=== PATIENT | male | born 1950 | race Caucasian/White ===

== ENCOUNTER 2022-10-30 06:21 | Inpatient (IN) ==
--- NOTE | 2022-10-30 06:32 | Emergency Department Note ---
Impression & Plan Pulmonary edema, Hypoxia, Pleural effusion, bilateral ED Provider Note NAME: SOLA GARSIA AGE: 72 SEX: M : 1950 ARRIVES VIA: Ambulance INFORMANT: Patient, EMS ED PROVIDER(S): Rigo Bain DO CHIEF COMPLAINT: Shortness of breath HPI: The patient is a 72-year-old male who presented to the emergency department by ambulance for an evaluation of shortness of breath. The patient awoke acutely this morning and was very short of breath. He states he has worsening shortness of breath with lying flat. He denies having any cough or fever. He had no hemoptysis. He denies having any lower extremity swelling or pain. The patient denies having any chest pain. He called 911. The patient arrived at the emergency department via ALS with noninvasive positive pressure ventilation in place. The patient's prehospital oxygen saturation was 86%. The patient states he has no history of CHF. ROS: See above HPI for pertinent positives & negatives. A total of 10 systems reviewed and were otherwise negative. PAST MEDICAL HISTORY: See Below PAST SURGICAL HISTORY: See Below FAMILY HISTORY: See Below SOCIAL HISTORY: See Below HOME MEDICATIONS: See Below ALLERGIES: See Below VITALS: See Below PHYSICAL EXAMINATION: GENERAL: The patient is awake and alert. He is comfortable appearing. EYES: The conjunctivae are clear. The pupils are round and reactive. EARS, NOSE, MOUTH AND THROAT: The nose is without any evidence of any deformity. NECK: The neck is nontender and supple. RESPIRATORY: Diminished breath sounds were noted throughout. There is no tachypnea. CARDIOVASCULAR: Regular rate and rhythm was noted to auscultation. Systolic murmur was suggested. GASTROINTESTINAL: The abdomen is soft. Abdomen is nontender. MUSCULOSKELETAL/EXTREMITIES: There is no evidence of gross deformity full range of motion is noted in the hips and shoulders. SKIN: Skin was warm and dry. Trace pedal edema was noted bilaterally. Pulses are symmetric in both feet. NEUROLOGIC: Patient is awake alert and oriented x3 MEDICAL DECISION MAKING: The patient is a 72-year-old male who presented to the emergency department for an evaluation of difficulty breathing. The patient arrived in the general machinist hours. He was placed on BiPAP prior to arrival. The patient was treated with Lasix in the emergency department. Chest x-ray appeared to be consistent with pulmonary edema although the final read was not committal to one disease process. The patient does have a dry cough. He was not febrile. White blood cell count was mildly elevated. I do not feel this is definitely consistent with an infectious process so further radiographic studies were obtained inc luding CT angiography. There is no signs of pulmonary embolism but there were bilateral pleural effusions. I discussed patient's laboratory and radiographic studies with him and his significant other. I also discussed this case with the on-call [facility] hospitalist. The patient may require further work-up as far as an echocardiogram to further determine disease process. I will defer any infectious work-up to the admitting team. Triage Nursing notes reviewed. Prior medical records reviewed Vital Signs: reviewed and remarkable for hypoxia. Differential diagnosis: Reactive airway disease, pneumonia, pneumothorax, COPD, CHF, infections, cardiac ischemia, pulmonary embolism, musculoskeletal, gastrointestinal, as well as other pathologies. ER treatment provided: See below Diagnostics interpreted by me: ECG: EKG was obtained in the emergency department. My interpretation is normal sinus rhythm at 87 bpm. There is no ectopy. There is no acute ST segment abnormalities noted. This was compared to a tracing from January 27, 2018. No changes were noted. Cardiac Monitoring: An order was placed for continuous cardiac monitoring. The monitor shows a rate of 82 bpm with sinus rhythm. Laboratory studies: As stated above and show below. Imaging studies: See below. Radiographic imaging was reviewed by myself Consultation(s): I discussed this case with Dr. Martínez who is on-call for the [facility] ospitalist group. Past Med/Surg History Medical History (Updated 10/30/22 @ 08:46 by Rigo Bain DO) Acute respiratory failure KENIA (acute kidney injury) Diabetes High cholesterol Hypertension Neuropathy Social History Smoking Status: Never smoker Preferred Language: Azeri marital status: Current Living Situation: Family Feels Safe at Home: Yes Allergies Allergies Allergy/AdvReac Type Severity Reaction Status Date / Time No Known Allergies Allergy Mild Unverified 08/03/06 08:15 TETNUS Allergy Unknown UKN Uncoded 03/26/09 19:25 Home Meds Home Medications Medication Instructions Recorded Confirmed Metoprolol Succ (Toprol Xl) 100 mg PO DAILY ##0 08/03/06 (Toprol-Xl ) Aspirin (Aspirin Tab-Chewable *) DAILY ##0 03/26/09 Losartan Potassium (Cozaar *) 50 mg PO DAILY ##0 03/26/09 Simvastatin (Zocor) 20 mg PO QPM ##0 03/26/09 Results & Data (ED) Vital Signs Vital Signs - 24 hr 10/30/22 06:28 10/30/22 06:28 10/30/22 06:28 Temperature 36.6 C Temperature Source Oral Oral Pulse Rate 89 Pulse Rate [Right Finger] Respiratory Rate 26 H Respiratory Effort / Characteristics Non-Labored Respiratory Depth Normal Blood Pressure 174/74 H Blood Pressure [Left Arm] Blood Pressure Mean 107 Blood Pressure Mean [Left Arm] Pulse Oximetry 97 Oxygen Delivery Method Oxymask Oxymask Oxygen Flow Rate 4 Sepsis Recent Fever Within 48 Hours No Sepsis New/Unexplained Change in Mental Status No Sepsis Action Taken by Nursing No Action Required 10/30/22 06:28 10/30/22 06:44 10/30/22 07:42 Temperature Temperature Source Pulse Rate 90 Pulse Rate [Right Finger] 78 Respiratory Rate 24 Respiratory Effort / Characteristics Non-Labored Respiratory Depth Normal Blood Pressure Blood Pressure [Left Arm] 165/86 H Blood Pressure Mean Blood Pressure Mean [Left Arm] 112 Pulse Oximetry 97 98 Oxygen Delivery Method Room Air Room Air Oxygen Flow Rate Sepsis Recent Fever Within 48 Hours Sepsis New/Unexplained Change in Mental Status Sepsis Action Taken by Nursing 10/30/22 08:31 Temperature Temperature Source Pulse Rate Pulse Rate [Right Finger] 82 Respiratory Rate 22 Respiratory Effort / Characteristics Non-Labored Respiratory Depth Normal Blood Pressure Blood Pressure [Left Arm] 140/73 Blood Pressure Mean Blood Pressure Mean [Left Arm] 95 Pulse Oximetry 95 Oxygen Delivery Method Room Air Oxygen Flow Rate Sepsis Recent Fever Within 48 Hours Sepsis New/Unexplained Change in Mental Status Sepsis Action Taken by Usp Medications Current Medication List: was personally reviewed by me Laboratory Data Attestation: I reviewed the patient's lab results. 10/30/22 06:37 10/30/22 06:37 Lab Results 10/30/22 10/30/22 10/30/22 Range/Units 06:37 06:37 06:37 WBC 11.68 H (4.8-10.8) K/ul RBC 5.01 (4.70-6.10) M/uL Hgb 14.9 (14.0-18.0) g/dl Hct 43.5 (42.0-52.0) % MCV 86.8 (80.0-100.0) fL MCH 29.7 (25.0-34.0) pg MCHC 34.3 (32.0-36.0) g/dL RDW Std Deviation 43.5 (36.4-46.3) fL RDW Coeff of Scarlett 13.8 (11.5-14.5) % Plt Count 237 (130-400) K/uL MPV 10.6 (9.4-12.4) fL Immature Gran % (Auto) 0.3 % Neut % (Auto) 79.4 % Lymph % (Auto) 13.4 % [place] % (Auto) 5.1 % Eos % (Auto) 1.2 % Baso % (Auto) 0.6 % Neut # (Auto) 9.28 H (1.40-6.50) K/uL Lymph # (Auto) 1.56 (1.2-3.4) K/uL [place] # (Auto) 0.59 (0.11-0.59) K/uL Eos # (Auto) 0.14 (0-0.50) K/uL Baso # (Auto) 0.07 (0-0.2) K/uL Immature Gran # (Auto) 0.04 (0.01-0.20) K/uL PT 10.8 (9.0-12.0) Seconds INR 1.0 (0.9-1.1) APTT 28.9 (21.0-31.0) Seconds PTT Ratio 1.0 VBG pH (7.36-7.41) VBG pCO2 (38-50) mmHg VBG pO2 mmHg VBG HCO3 mmol/L VBG O2 Saturation % VBG Base Excess mEq/L Sodium 142 (136-145) mmol/L Potassium 4.4 (3.5-5.1) mmol/L Chloride 107 (98-107) mmol/L Carbon Dioxide 24 (21-32) mmol/L Anion Gap 11 (3-11) BUN 27 H (6-23) mg/dl Creatinine 1.73 H (0.6-1.4) mg/dl Est Cr Clr Drug Dosing 43.2 ml/min Est GFR ( Amer) 44.1 ml/min Est GFR (Non-Af Amer) 38.0 ml/min BUN/Creatinine Ratio 15.6 (10-20) Glucose 203 H (70-99(Fasting)) mg/dl Calcium 9.5 (8.6-10.3) mg/dl Magnesium 1.7 (1.7-2.4) mg/dl Total Bilirubin 0.4 (0.2-1.0) mg/dl AST 14 (13-39) U/L ALT 12 (7-52) U/L Alkaline Phosphatase 75 (34-104) U/L Troponin I High Sens 7.4 (0-20) pg/ml B-Natriuretic Peptide (0-100) pg/ml Total Protein 7.8 (6.0-8.3) gm/dl Albumin 4.6 (3.4-5.0) gm/dl Globulin 3.2 (2.5-4.0) gm/dl Albumin/Globulin Ratio 1.4 (0.9-2) Adenovirus (PCR) (NotDetected) B. pertussis DNA (PCR) (NotDetected) B.parapertussis DNA PCR (NotDetected) C. pneumoniae DNA (PCR) (NotDetected) Coronavirus OC43 (PCR) (NotDetected) Coronavirus HKU1 (PCR) (NotDetected) Coronavirus 229E (PCR) (NotDetected) SARS-CoV-2 (PCR) (NotDetected) Coronavirus NL63 (PCR) (NotDetected) Human Metapneumovir PCR (NotDetected) Influenza Type A (PCR) (NotDetected) Influenza Type B (PCR) (NotDetected) M. pneumoniae (PCR) (NotDetected) Parainfluenza 1 (PCR) (NotDetected) Parainfluenza 2 (PCR) (NotDetected) Parainfluenza 3 (PCR) (NotDetected) Parainfluenza 4 (PCR) (NotDetected) RSV (PCR) (NotDetected) Entero/Rhino (PCR) (NotDetected) 10/30/22 10/30/22 10/30/22 Range/Units 06:37 06:40 06:40 WBC (4.8-10.8) K/ul RBC (4.70-6.10) M/uL Hgb (14.0-18.0) g/dl Hct (42.0-52.0) % MCV (80.0-100.0) fL MCH (25.0-34.0) pg MCHC (32.0-36.0) g/dL RDW Std Deviation (36.4-46.3) fL RDW Coeff of Scarlett (11.5-14.5) % Plt Count (130-400) K/uL MPV (9.4-12.4) fL Immature Gran % (Auto) % Neut % (Auto) % Lymph % (Auto) % [place] % (Auto) % Eos % (Auto) % Baso % (Auto) % Neut # (Auto) (1.40-6.50) K/uL Lymph # (Auto) (1.2-3.4) K/uL [place] # (Auto) (0.11-0.59) K/uL Eos # (Auto) (0-0.50) K/uL Baso # (Auto) (0-0.2) K/uL Immature Gran # (Auto) (0.01-0.20) K/uL PT (9.0-12.0) Seconds INR (0.9-1.1) APTT (21.0-31.0) Seconds PTT Ratio VBG pH 7.36 (7.36-7.41) VBG pCO2 47 (38-50) mmHg VBG pO2 38 mmHg VBG HCO3 27 mmol/L VBG O2 Saturation 67.6 % VBG Base Excess 0.6 mEq/L Sodium (136-145) mmol/L Potassium (3.5-5.1) mmol/L Chloride (98-107) mmol/L Carbon Dioxide (21-32) mmol/L Anion Gap (3-11) BUN (6-23) mg/dl Creatinine (0.6-1.4) mg/dl Est Cr Clr Drug Dosing ml/min Est GFR ( Amer) ml/min Est GFR (Non-Af Amer) ml/min BUN/Creatinine Ratio (10-20) Glucose (70-99(Fasting)) mg/dl Calcium (8.6-10.3) mg/dl Magnesium (1.7-2.4) mg/dl Total Bilirubin (0.2-1.0) mg/dl AST (13-39) U/L ALT (7-52) U/L Alkaline Phosphatase (34-104) U/L Troponin I High Sens (0-20) pg/ml B-Natriuretic Peptide 205 H (0-100) pg/ml Total Protein (6.0-8.3) gm/dl Albumin (3.4-5.0) gm/dl Globulin (2.5-4.0) gm/dl Albumin/Globulin Ratio (0.9-2) Adenovirus (PCR) Not Detected (NotDetected) B. pertussis DNA (PCR) Not Detected (NotDetected) B.parapertussis DNA PCR Not Detected (NotDetected) C. pneumoniae DNA (PCR) Not Detected (NotDetected) Coronavirus OC43 (PCR) Not Detected (NotDetected) Coronavirus HKU1 (PCR) Not Detected (NotDetected) Coronavirus 229E (PCR) Not Detected (NotDetected) SARS-CoV-2 (PCR) Not Detected (NotDetected) Coronavirus NL63 (PCR) Not Detected (NotDetected) Human Metapneumovir PCR Not Detected (NotDetected) Influenza Type A (PCR) Not Detected (NotDetected) Influenza Type B (PCR) Not Detected (NotDetected) M. pneumoniae (PCR) Not Detected (NotDetected) Parainfluenza 1 (PCR) Not Detected (NotDetected) Parainfluenza 2 (PCR) Not Detected (NotDetected) Parainfluenza 3 (PCR) Not Detected (NotDetected) Parainfluenza 4 (PCR) Not Detected (NotDetected) RSV (PCR) Not Detected (NotDetected) Entero/Rhino (PCR) Not Detected (NotDetected) Administered Medications Discontinued Medications Furosemide (Furosemide 40 Mg/4 Ml Vial) 40 mg IV ONE ONE Stop: 10/30/22 07:36 Last Admin: 10/30/22 07:49 Dose: 40 mg Documented By: NRB Ioversol (Ioversol 350 Mg 125ml Prefilled Syringe) 120 ml IV ONCE ONE Stop: 10/30/22 08:04 Last Admin: 10/30/22 07:57 Dose: 120 ml Documented By: BRTiffani Imaging Data Attestation: I personally reviewed and interpreted this imaging study as follows: My Impression: 1 view chest x-ray was obtained in the emergency department. My interpretation is no free air, questionable pulmonary edema, final report below. Radiologist's Impression: Chest X-Ray 10/30/22 06:30 XR chest 1V portable CLINICAL HISTORY: Dyspnea TECHNIQUE: Single frontal radiograph of the chest was obtained. Comparison: Comparison is made to chest radiograph 01/27/2018 FINDINGS: No lines and tubes are seen. The cardiomediastinal silhouette is normal. Faint bibasilar airspace opacities are seen. No evidence of pleural effusion or pneumothorax. IMPRESSION: Faint bibasilar airspace opacities which may represent atelectasis, pneumonia, and/or aspiration. ACT 112: Negative or not required by law. Electronically signed by: Lior Escobar M.D. 10/30/2022 7:27 AM Chest CTA 10/30/22 07:38 CT angio chest PE protocol CLINICAL HISTORY: PE TECHNIQUE: Multidetector row helical CT of the chest was performed with angiographic protocol. Coronal and sagittal reformations were obtained. Coronal and sagittal MIPS were obtained from the axial data set and were submitted for review. Automated dose lowering techniques and/or adjustment according to patient size were utilized for this exam. CT DOSE: 1811.16 mGy.cm Comparison: None available at the time of this dictation. FINDINGS: Lungs and pleura: Bilateral pleural effusions are seen. Atelectasis and groundglass opacities are seen. Bronchial wall thickening is seen. Heart and pericardium: Heart size is normal. No pericardial effusion. Vessels: No evidence of pulmonary embolism. Moderate atherosclerotic disease is seen. Mediastinum and hudson: Enlarged lymph nodes measure up to 14 mm in the subcarinal region. Chest wall and lower neck: Unremarkable. Abdomen: Unremarkable. Bones: Degenerative changes in the thoracic spine. IMPRESSION: 1. Bronchial wall thickening is seen. Mild bilateral pleural effusions are seen. There are scattered groundglass opacities which may represent pneumonia. Likely reactive lymphadenopathy is seen. 2. No evidence of pulmonary embolus. ACT 112: Negative or not required by law. Electronically signed by: Lior Escobar M.D. 10/30/2022 8:25 AM Discharge Plan Visit Data Chief Complaint: Respiratory Problems ED Provider: Rigo Bain Discharge Problem: Pulmonary edema, Hypoxia, Pleural effusion, bilateral Patient Disposition: Being Evaluated by Hospitalist Forms Stand Alone Forms: My [facility] Prescriptions Prescriptions: No Action Metoprolol Succ (Toprol Xl) (Toprol-Xl ) 100 MG [id number] 100 mg PO DAILY Qty: 0 Aspirin (Aspirin Tab-Chewable *) 81 MG CHEWABLE TAB DAILY Qty: 0 Losartan Potassium (Cozaar *) 50 MG tablet 50 mg PO DAILY Qty: 0 Simvastatin (Zocor) 20 MG tablet 20 mg PO QPM Qty: 0 Referrals Referrals: Ana Nayak DO [Primary Care Provider] -
[2022-10-30 06:51] LABS: Base Excess VBG 0.6 mEq/L; HCO3 VBG 27 mmol/L; Oxygen Saturation VBG 67.6 %; PCO2 VBG 47 mmHg (38-50); PO2 VBG 38 mmHg; pH VBG 7.36 (7.36-7.41)
[2022-10-30 06:56] LABS: Basophils # (auto) 0.07 K/uL (0-0.2); Basophils % (auto) 0.6 %; Eosinophils # (auto) 0.14 K/uL (0-0.50); Eosinophils % (auto) 1.2 %; Hematocrit (blood only) 43.5 % (42.0-52.0); Hemoglobin 14.9 g/dl (14.0-18.0); Immature Granulocytes # (auto) 0.04 K/uL (0.01-0.20); Immature Granulocytes % (auto) 0.3 %; Lymphocytes # (auto) 1.56 K/uL (1.2-3.4); Lymphocytes % (auto) 13.4 %; Mean Corpuscular Hemoglobin 29.7 pg (25.0-34.0); Mean Corpuscular Hgb Conc 34.3 g/dL (32.0-36.0); Mean Corpuscular Volume 86.8 fL (80.0-100.0); Mean Platelet Volume 10.6 fL (9.4-12.4); Monocytes # (auto) 0.59 K/uL (0.11-0.59); Monocytes % (auto) 5.1 %; Neutrophils # (auto) 9.28 K/uL (1.40-6.50); Neutrophils % (auto) 79.4 %; Platelet Count 237 K/uL (130-400); RDW Coefficient of Variation 13.8 % (11.5-14.5); RDW Standard Deviation 43.5 fL (36.4-46.3); Red Blood Count 5.01 M/uL (4.70-6.10); White Blood Count 11.68 K/ul (4.8-10.8)
[2022-10-30 07:16] LABS: Albumin Globulin Ratio 1.4 (0.9-2); Albumin Level 4.6 gm/dl (3.4-5.0); BUN Creatinine Ratio 15.6 (10-20); Bilirubin,Total 0.4 mg/dl (0.2-1.0); Calcium 9.5 mg/dl (8.6-10.3); Creatinine Clr Calc Pharmacy 43.2 ml/min; Est GFR (African American) 44.1 ml/min; Globulin 3.2 gm/dl (2.5-4.0); Magnesium 1.7 mg/dl (1.7-2.4); Potassium 4.4 mmol/L (3.5-5.1); Total Protein 7.8 gm/dl (6.0-8.3)
[2022-10-30 07:21] LABS: Troponin I High Sensitivity 7.4 pg/ml (0-20)
--- NOTE | 2022-10-30 07:28 | XRay Report ---
XR chest 1V portable CLINICAL HISTORY: Dyspnea TECHNIQUE: Single frontal radiograph of the chest was obtained. Comparison: Comparison is made to chest radiograph 01/27/2018 FINDINGS: No lines and tubes are seen. The cardiomediastinal silhouette is normal. Faint bibasilar airspace opa cities are seen. No evidence of pleural effusion or pneumothorax. IMPRESSION: Faint bibasilar airspace opacities which may represent atelectasis, pneumonia, and/or aspiration. ACT 112: Negative or not required by law. Electronically signed by: Lior Escobar M.D. 10/30/2022 7:27 AM
[2022-10-30] MEDS ORDERED: FUROSEMIDE 40 MG/4 ML VIAL IV ONE ×2 (07:35→16:47)
[2022-10-30 07:43] LABS: Adenovirus PCR Not Detected (NotDetected); Bordetella parapertussis PCR Not Detected (NotDetected); Bordetella pertussis PCR Not Detected (NotDetected); Chlamydia pneumoniae PCR Not Detected (NotDetected); Coronavirus 229E PCR Not Detected (NotDetected); Coronavirus CoV-2 (COVID19)PCR Not Detected (NotDetected); Coronavirus HKU1 PCR Not Detected (NotDetected); Coronavirus NL63 PCR Not Detected (NotDetected); Coronavirus OC43PCR Not Detected (NotDetected); Human Metapneumovirus PCR Not Detected (NotDetected); Influenza A PCR Not Detected (NotDetected); Influenza B PCR Not Detected (NotDetected); Mycoplasma pneumoniae PCR Not Detected (NotDetected); Parainfluenza Virus 1 PCR Not Detected (NotDetected); Parainfluenza Virus 2 PCR Not Detected (NotDetected); Parainfluenza Virus 3 PCR Not Detected (NotDetected); Parainfluenza Virus 4 PCR Not Detected (NotDetected); Respiratory Syncytial VirusPCR Not Detected (NotDetected); Rhinovirus/Enterovirus PCR Not Detected (NotDetected)
[2022-10-30 07:45] LABS: Partial Thromboplastin Time 28.9 Seconds (21.0-31.0); Prothrombin Time 10.8 Seconds (9.0-12.0)
[2022-10-30] MEDS ORDERED: IOVERSOL 350 MG 125mL Prefilled Syringe IV ONE (08:03)
--- NOTE | 2022-10-30 08:27 | CT Scan Report ---
CT angio chest PE protocol CLINICAL HISTORY: PE TECHNIQUE: Multidetector row helical CT of the chest was performed with angiographic protocol. [place] l and sagittal reformations were obtained. Coronal and sagittal MIPS were obtained from the axial isabella a set and were submitted for review. Automated dose lowering techniques and/or adjustment according to patient size were utilized for this exam. CT DOSE: 1811.16 mGy.cm Comparison: None available at the time of this dictation. FINDINGS: Lungs and pleura: Bilateral pleural effusions are seen. Atelectasis and groundglass opacities are see n. Bronchial wall thickening is seen. Heart and pericardium: Heart size is normal. No pericardial effusion. Vessels: No evidence of pulmonary embolism. Moderate atherosclerotic disease is seen. Mediastinum and hudson: Enlarged lymph nodes measure up to 14 mm in the subcarinal region. Chest wall and lower neck: Unremarkable. Abdomen: Unremarkable. Bones: Degenerative changes in the thoracic spine. IMPRESSION: 1. Bronchial wall thickening is seen. Mild bilateral pleural effusions are seen. There are scattered groundglass opacities which may represent pneumonia. Likely reactive lymphadenopathy is seen. 2. No evidence of pulmonary embolus. ACT 112: Negative or not required by law. Electronically signed by: Lior Escobar M.D. 10/30/2022 8:25 AM
[2022-10-30] MEDS ORDERED: POLYETHYLENE (MIRALAX) 17 GM PACK PO PRN (08:35)
[2022-10-30] MEDS ORDERED: ALUMINUM/MAGNESIUM SUSP 30 ML UDC PO PRN (08:35)
[2022-10-30] MEDS ORDERED: ONDANSETRON INJ 2 MG/ML 2 ML VIAL IV PRN (08:35)
[2022-10-30] MEDS ORDERED: ACETAMINOPHEN 325 MG TAB PO PRN (08:35)
--- NOTE | 2022-10-30 08:46 | History & Physical Report ---
Date of Service October 30, 2022 Assessment & Plan (1) Acute respiratory failure: (2) KENIA (acute kidney injury): (3) Hypertension: (4) High cholesterol: (5) Diabetes: Plan 72 year old presents with acute onset SOB. SpO2 86%, placed on Bipap; since removed. Received Lasix 40 mg IV in ED. CXR and Chest CTA suggestive of PNA. No PE. Procal and Biofire negative. Recent Gabapentin added to med regimen in September. KENIA Creatinine 1.73; baseline 1.3-1.4. Avoid nephrotoxic agents. Other PMH HTN (On Amlodipine, Losartan, HCTZ and Metoprolol), NIDDM (ON Metformin and Glipizide well controlled), HLD, and Hypothyroidism. At baseline, independent and active clark. No fever, chills. Does not appear toxic. Some OSBORNE noted over past few weeks walking uphill after fishing. Treating for PNA with Doxy and new onset CHF with repeat ECHO, diuretics and Cardiology consultation PNA: Acute Respiratory Failure: SpO2 on arrival 86% --> Bipap Lasix 40 mg in ED with good response; 400mL output in ED BNP: 205; No known history of CHF Slight leukocytosis WBC 11.68 CXR: Faint bibasilar airspace opacities which may represent atelectasis, pneumonia, and/or aspiration. Chest CTA: Bronchial wall thickening is seen. Mild bilateral pleural effusions are seen. There are scattered groundglass opacities which may represent pneumonia. Likely reactive lymphadenopathy is seen. Procalcitonin negative, Mg+ and Phos+ added on Fluid restriction 1800 mL for now VBG compensated Start on Doxycycline IV; reassess CXR in a few days Bipap PRN KENIA: Creatinine 1.73; baseline 1.3-1.4 per outpatient records Check UA and renal US Urine appeared clear yellow via urinal in ED HTN: Takes Losartan, Metoprolol, HCTZ and Amlodipine; Hold Losartin and HCTZ for now due to KENIA; reassess and restart based on kidney function improvement Last ECHO: 11/2021: EF 65-69&, LV wall motion normal with mild concentric LV. AV bicuspid congenital valve, moderate AV stenosis, mild MR, Grade II DDx. Previous ECHO was 2020 prior to that and no significatn changes HLD: Takes Rosuvastatin; continue Last lipid panel 09/25/22: TG 192, HDL 36, LDL 46 NIDDM2: Takes Metformin and Glipizide; hold both while inpatient Takes Gabapentin; newly added medication on 09/25; will hold for now due to KENIA Place on ACHS SSI Last A1C: 09/25/22: 6.2 Hypothyroidism: Takes Levothyroxine; continue Last TSH 09/25/22: 2.96 Disposition: PCP: Dr. Nayak Code Status: Full Code VTE Prophylaxis: Lovenox SQ I spent a total of 87 minutes coordinating, documenting, and providing care for this patient excluding time spent in the performance of separately billed services. All of the aforementioned completed while collaborating with the assigned attending physician for a full treatment plan. Please see their addendum for further details. History of Present Illness Chief Complaint: Shortness of Breath Primary Care Provider: Ana Nayak DO Mr. Solis is a 72 year old male that presents to the [facility] ED via EMS this morning with an acute onset of shortness of breath that started this morning around 0400. He was lying flat and woke from his sleep feeling winded. No associated chest pain. He went to the living room to see if elevation would help and it did not which led to his calling 911. Pt arrived to ED on Bipap which has since been removed after Lasix administration. No other symptoms leading up BNP elevated 205. No known CHF. Mild leukocytosis WBC 11.68 and superimposed KENIA creatinine 1.73; worsening from baseline of 1.4. Last outpatient appointment was 09/25/22 and BP has been well controlled as an outpatient 130/60. Was planning to have an ECHO in the fall; no recent SOB. He is an avid clark and has noticed over the past three weeks that after he is done fishing he does have OSBORNE after climbing the hill back to his car. No usual SOB with daily ambulation to the car, bathroom, around the house, etc. He is retired. CXR: Faint bibasilar airspace opacities which may represent atelectasis, pneumonia, and/or aspiration. Chest CTA: Bronchial wall thickening is seen. Mild bilateral pleural effusions are seen. There are scattered ground-glass opacities which may represent pneumonia. Likely reactive lymphadenopathy is seen. Last ECHO: 11/2021: EF 65-69&, LV wall motion normal with mild concentric LV. AV bicuspid congenital valve, moderate AV stenosis, mild MR, Grade II DDx. Previous ECHO was 2020 prior to that and no significant changes. Follows with Dr. Biggs and Jay Clements as an outpatient. Next ECHO was planned for midNovember. No tobacco, alcohol, or recreational drug use. Pt denies HINSON, visual or auditory disturbances, dizziness, chest pain, palpitations, N/V/D, abdominal pain or tenderness, flank pain, recent falls or trauma. On examination, patient in no apparent distress on 2LNC holding saturations 96- 97%. Appreciate audible heart murmur. trace LE edema; responding well to Lasix. Decreased air movement in lower lung jackson. Suspect patient has PNA and new onset CHF and KENIA. Will treat with IV abx and IV Lasix with ECHO and cardiology consult. Will hold nephrotoxic agents and monitor urine output. Patient will be admitted for further evaluation and management. Please see A/P for further details. Allergies Allergy/AdvReac Type Severity Reaction Status Date / Time tetanus and diphtheria Allergy Unknown Unknown Verified 10/30/22 11:35 toxoids lisinopril AdvReac Cough Unverified 10/30/22 08:47 Home Medications Medication Instructions Recorded Confirmed Type amlodipine 5 mg tablet 5 mg PO BID 10/30/22 10/30/22 History aspirin 81 mg chewable tablet 81 mg PO QPM 10/30/22 10/30/22 History gabapentin 100 mg capsule 100 mg PO TID 10/30/22 10/30/22 History glipizide 2.5 mg tablet, extended 2.5 mg PO QAM 10/30/22 10/30/22 History release 24 hr hydrochlorothiazide 12.5 mg capsule 12.5 mg PO BID 10/30/22 10/30/22 History levothyroxine 50 mcg tablet 50 mcg PO QAM 10/30/22 10/30/22 History losartan 50 mg tablet 50 mg PO BID 10/30/22 10/30/22 History metformin 500 mg tablet 500 mg PO BIDWMEAL 10/30/22 10/30/22 History metoprolol succinate 100 mg 100 mg PO BID 10/30/22 10/30/22 History tablet,extended release 24 hr rosuvastatin 20 mg tablet 20 mg PO QPM 10/30/22 10/30/22 History Past Med/Surg History Medical History (Updated 10/30/22 @ 08:46 by Rigo Bain DO) Acute respiratory failure KENIA (acute kidney injury) Diabetes High cholesterol Hypertension Neuropathy Surgical History (Updated 10/30/22 @ 10:35 by SHERRY Brian) No pertinent past surgical history Family History (Updated 10/30/22 @ 10:34 by SHERRY Brian) Other Alzheimer disease Coronary heart disease Social History (Updated 10/30/22 @ 10:35 by SHERRY Brian) Smoking Status: Former smoker Smoking End Date: 50 years ago; Second Hand Exposure: No; Do You Dip or Chew Tobacco: No; Hx Alcohol Use: Yes Alcohol type: beer Hx Substance Use: No Preferred Language: Cymraes Communication Ability: Effective 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 Beliefs That Will Affect Care: None marital status: Current Living Situation: Spouse Other Information That Helps Us Care for You: No Feels Safe at Home: Yes Safety Concerns: Feels Safe At This Time Assistive Devices: Denture - Upper Review of Systems Review of Systems: Neuro: (-) Falls, trauma, slurred speech HEENT: (-) HINSON, dizziness, dysphagia, visual or auditory changes CV: (-) CP, palpitations, swelling Resp: (+) SOB GI: (-) appetite changes, N/V/D, bowel changes : (-) urinary changes Skin: (-) rashes Psych: (-) anxiety, depression Physical Exam Physical Exam: Neuro: AAOx4, PERRLA, no aphagia, memory changes, CNII-XII grossly intact HEENT: head normocephalic, moist mucus membranes CV: S1/S2, (-) M/G/R, trace BL Le edema, cap refill < 3 seconds Resp: Lungs decreased in bilateral bases; on 2LNC SpO2 96% GI: Abdomen S/NT/ND, Ax4 bowel sounds, (-) CVA tenderness Musculoskeletal: 5/5 B/L UE strength, 5/5 B/L LE strength. No gait disturbance Skin: (-) rashes , (-) erythema. Psych: euthymic mood Results & Data Results & Data Vital Signs (Past 12 Hours) Vital Signs Temp Pulse Pulse Resp BP BP Pulse Ox 10/30/22 08:31 82 22 140/73 95 10/30/22 07:42 78 24 165/86 H 98 10/30/22 06:44 97 10/30/22 06:28 90 10/30/22 06:28 10/30/22 06:28 36.6 C 89 26 H 174/74 H 97 O2 Del Method O2 Flow Rate 10/30/22 08:31 Room Air 10/30/22 07:42 Room Air 10/30/22 06:44 Room Air 10/30/22 06:28 10/30/22 06:28 Oxymask 10/30/22 06:28 Oxymask 4 Laboratory Results Short CBC 10/30/22 Range/Units 06:37 WBC 11.68 H (4.8-10.8) K/ul Hgb 14.9 (14.0-18.0) g/dl Hct 43.5 (42.0-52.0) % Plt Count 237 (130-400) K/uL BMP 10/30/22 06:37 Sodium 142 Potassium 4.4 Chloride 107 Carbon Dioxide 24 BUN 27 H Creatinine 1.73 H Glucose 203 H Calcium 9.5 Liver Function 10/30/22 Range/Units 06:37 Total Bilirubin 0.4 (0.2-1.0) mg/dl AST 14 (13-39) U/L ALT 12 (7-52) U/L Alkaline Phosphatase 75 (34-104) U/L Albumin 4.6 (3.4-5.0) gm/dl Diagnostic Findings Chest X-Ray 10/30/22 06:30 XR chest 1V portable CLINICAL HISTORY: Dyspnea TECHNIQUE: Single frontal radiograph of the chest was obtained. Comparison: Comparison is made to chest radiograph 01/27/2018 FINDINGS: No lines and tubes are seen. The cardiomediastinal silhouette is normal. Faint bibasilar airspace opacities are seen. No evidence of pleural effusion or pneumothorax. IMPRESSION: Faint bibasilar airspace opacities which may represent atelectasis, pneumonia, and/or aspiration. ACT 112: Negative or not required by law. Electronically signed by: Lior Escobar M.D. 10/30/2022 7:27 AM Chest CTA 10/30/22 07:38 CT angio chest PE protocol CLINICAL HISTORY: PE TECHNIQUE: Multidetector row helical CT of the chest was performed with angiographic protocol. Coronal and sagittal reformations were obtained. Coronal and sagittal MIPS were obtained from the axial data set and were submitted for review. Automated dose lowering techniques and/or adjustment according to patient size were utilized for this exam. CT DOSE: 1811.16 mGy.cm Comparison: None available at the time of this dictation. FINDINGS: Lungs and pleura: Bilateral pleural effusions are seen. Atelectasis and groundglass opacities are seen. Bronchial wall thickening is seen. Heart and pericardium: Heart size is normal. No pericardial effusion. Vessels: No evidence of pulmonary embolism. Moderate atherosclerotic disease is seen. Mediastinum and hudson: Enlarged lymph nodes measure up to 14 mm in the subcarinal region. Chest wall and lower neck: Unremarkable. Abdomen: Unremarkable. Bones: Degenerative changes in the thoracic spine. IMPRESSION: 1. Bronchial wall thickening is seen. Mild bilateral pleural effusions are seen. There are scattered groundglass opacities which may represent pneumonia. Likely reactive lymphadenopathy is seen. 2. No evidence of pulmonary embolus. ACT 112: Negative or not required by law. Electronically signed by: Lior Escobar M.D. 10/30/2022 8:25 AM Code Status & VTE Plan Code Status Full Code in the event of cardiac or respiratory arrest VTE Prophylaxis Plan VTE Prophylaxis will be ordered: Yes Supervising Physician Co-Signing Physician Notes 72-year-old male with PMH of HTN, NIDDM, HLD, hypothyroidism presented to the ED 10/30 with acute shortness of breath waking him up from sleep and then he started noting orthopnea after worse during CT scan of his chest at admission. He reports having lower extremity swelling lately. He denies any fever/chills/unusual cough productive of foul-smelling/discolored sputum. Of note, patient found to be in respiratory distress by EMS and needed BiPAP in route to the hospital which improved after IV Lasix administration and was able to be stable on nasal cannula oxygen. At presentation, BNP elevated. Echo with EF greater than 70% and moderate to severe aortic stenosis. Had BLE 1+ pitting edema. Occasional bibasal rales. CXR with bibasilar opacities. CTA chest negative for PE. Creatinine was elevated. On Exam: GENERAL: Alert and oriented x3. NAD, on 2.5 L NC O2. HEENT: No pallor, no icterus. Pupils equal, round and reactive to light. Oral mucosa moist. NECK: No JVD, no neck masses. HEART: S1 and S2 heard. Regular rate and rhythm. No murmur, no gallop. RESPIRATORY SYSTEM: Normal AP diameter. No accessory muscle use. No wheezing, bb crackles. ABDOMEN: Soft, bowel sounds present, nontender, no distention. CENTRAL NERVOUS SYSTEM: No facial droop. Speech is clear. Obeys simple commands. Moves extremities. EXTREMITIES: 1+ BLE edema, no erythema seen. Plan: Acute respiratory failure likely secondary to acute CHF -continue with Lasix, monitor and replete electrolytes. Cardiology consult. Possible atypical pneumonia started on doxycycline. KENIA over CKD: Ultrasound renal reviewed. Expect to improve with IV Lasix. BMP in AM. Other chronic medical conditions, resume home meds as and when able. Hold nephrotoxic medications like losartan/HCTZ/gabapentin. I have seen and examined the patient and have discussed the case with the provider above. I agree with the assessment and plan as stated.
[2022-10-30 08:57] LABS: Appearance Urine Clear (Clear); Bilirubin Urine Negative (Negative); Blood Urine Negative (Negative); Color Urine Yellow; Glucose Urine UA Negative (Negative); Ketones Urine Negative (Negative); Leukocyte Esterase Urine Negative (Negative); Nitrite Urine Negative (Negative); Protein Urine Negative (Negative); Specific Gravity Urine 1.017 (1.000-1.030); Urobilinogen Urine Negative (Negative); pH Urine 5.5 (4.5-7.5)
[2022-10-30] MEDS ORDERED: CARBOHYDRATES FOR HYPOGLYCEMIA PO PRN (09:56)
[2022-10-30] MEDS ORDERED: GLUCOSE 40% GEL 15 GM TUBE PO PRN (09:56)
[2022-10-30] MEDS ORDERED: GLUCOSE 10 TAB/TUBE PO PRN (09:56)
[2022-10-30] MEDS ORDERED: GLUCAGON FOR INJ 1 MG VIAL SQ PRN (09:56)
[2022-10-30] MEDS ORDERED: DEXTROSE 50% 50 ML SYRINGE IV PRN (09:56)
[2022-10-30] MEDS: LEVOTHYROXINE SODIUM 50 MCG TABLET PO SCH (12:23)
[2022-10-30] MEDS: INSULIN ASPART PER UNIT CHARGE SC SCH ×3 (12:23→20:36)
[2022-10-30] MEDS: DOXYCYCLINE HYCLATE 100 MG in DEXTROSE 5% 100 ML IV SCH (12:23)
[2022-10-30] MEDS: amLODIPine BESYLATE 5 MG TAB PO SCH ×2 (12:23→20:23)
[2022-10-30] MEDS: METOPROLOL SUCC 50MG EXT REL TAB PO SCH ×2 (12:23→20:22)
--- NOTE | 2022-10-30 14:34 | Ultrasound Report ---
RENAL ULTRASOUND HISTORY: Acute or chronic kidney disease. COMPARISON: None. FINDINGS: Right kidney: 10.7 cm. No hydronephrosis. Normal corticomedullary differentiation and cortical thickn ess. Left kidney: 10.9 cm. No hydronephrosis. Normal corticomedullary differentiation and cortical thickne ss. Bladder: No bladder wall thickening. The bilateral ureteral jets were not identified. IMPRESSION: Normal renal ultrasound. ACT 112: Negative or not required by law. Electronically signed by: Alberto Chaidez M.D. 10/30/2022 2:32 PM
--- NOTE | 2022-10-30 15:27 | Cardiology Consultation ---
Date of Consultation October 30, 2022 Assessment & Plan (1) Acute diastolic heart failure due to valvular disease: (2) Aortic stenosis: (3) Pulmonary edema: (4) Hypertension: (5) Pneumonia: Plan See attending tile mason's documentation for further recommendations and plan of care. Supervising Physician Co-Signing Physician Notes Attending Staff: Pt seen and evaluated with AP Staff. Concur with observations and plans. 72 yo man presenting with dyspnea Dx: Pneumonia + acute on chronic diastolic heart failure Rx with diuretics and antibiotics Exam: JVP 12 cmH20 S1S2 2/6 systolic murmur; A2 is audible CTA B No C/C/E Warm and well perfused Plans: * Continue ABX * Continue diuresing * K+ goal 4.5-5 * Mag++ goal >2 * Plans to re-look at aortic valve in the clinic with ECHO. Yan Chávez History of Present Illness Reason for Consultation: dyspnea; HFpEF; Requesting Physician: Ms. Jassi POWELL Attending Physician: Dr. Chávez History of Present Illness Patient is a 72 year old male admitted to [facility] with complaints of dyspnea. Found to be hypoxic. Chest xray and chest CT consistent with possible CHF and PNA. Treated with IV lasix in ER and started on antibiotics as well. [facility]Dr. Biggs: History includes: Congenitally bicuspid aortic valve. Moderate aortic stenosis per last echo in Nov 2021. No significant aortopathy. Long-standing hypertension. Diastolic dysfunction/HFpEF Bilateral internal carotid artery disease. Carotid duplex in May 2020 revealed stable mild bilateral internal carotid artery disease. Mild pulmonary hypertension. Possible mild NATHALIE Hyperlipidemia. Past history of paroxysmal atrial tachycardia Type II diabetes mellitus with neuropathy and stage III chronic kidney disease. Followed by PCP and Nephrology. Hypothyroidism. Patient was in usual state of health yesterday. Went shopping with his and felt well. Ate large meal of "pigs in a blanket". Middle of the night patient awoke with sudden onset SOB, difficult breathing, congestion. Came to ER for evaluation. Found to be mildly hypoxic and started on CPAP. Treated with one dose IV lasix. Chest CT negative for PE, but with possible b/l opacities and lymphadenopathy consistent with possible pneumonia. started on antibiotic therapy EKG demonstrated NSR without acute changes. At time of consult patient already reports feeling better. SOB improving. cough improving. Good urine outputs with AM furosemide. Allergies Allergy/AdvReac Type Severity Reaction Status Date / Time tetanus and diphtheria Allergy Unknown Unknown Verified 10/30/22 11:35 toxoids lisinopril AdvReac Cough Unverified 10/30/22 08:47 Home Medications Medication Instructions Recorded Confirmed Type amlodipine 5 mg tablet 5 mg PO BID 10/30/22 10/30/22 History aspirin 81 mg chewable tablet 81 mg PO QPM 10/30/22 10/30/22 History gabapentin 100 mg capsule 100 mg PO TID 10/30/22 10/30/22 History glipizide 2.5 mg tablet, extended 2.5 mg PO QAM 10/30/22 10/30/22 History release 24 hr hydrochlorothiazide 12.5 mg capsule 12.5 mg PO BID 10/30/22 10/30/22 History levothyroxine 50 mcg tablet 50 mcg PO QAM 10/30/22 10/30/22 History losartan 50 mg tablet 50 mg PO BID 10/30/22 10/30/22 History metformin 500 mg tablet 500 mg PO BIDWMEAL 10/30/22 10/30/22 History metoprolol succinate 100 mg 100 mg PO BID 10/30/22 10/30/22 History tablet,extended release 24 hr rosuvastatin 20 mg tablet 20 mg PO QPM 10/30/22 10/30/22 History Patient History Medical History (Updated 10/30/22 @ 16:21 by Haritha Thorne PA-C) Acute respiratory failure KENIA (acute kidney injury) Diabetes High cholesterol Hypertension Neuropathy Surgical History (Updated 10/30/22 @ 10:35 by HSERRY Brian) No pertinent past surgical history Family History (Updated 10/30/22 @ 10:34 by SHERRY Brian) Other Alzheimer disease Coronary heart disease Social History (Updated 10/30/22 @ 10:35 by SHERRY rBian) Smoking Status: Former smoker Smoking End Date: 50 years ago; Second Hand Exposure: No; Do You Dip or Chew Tobacco: No; Hx Alcohol Use: Yes Alcohol type: beer Hx Substance Use: No Preferred Language: Faroese Communication Ability: Effective Bag Bundler Required: No Beliefs That Will Affect Care: None marital status: Current Living Situation: Spouse Other Information That Helps Us Care for You: No Feels Safe at Home: Yes Safety Concerns: Feels Safe At This Time Assistive Devices: Denture - Upper Review of Systems Review of Systems: All systems reviewed & are unremarkable except as noted in HPI & below Physical Exam Constitutional: WD/WN, vitals as above + obese; no acute distress Respiratory: no labored breathing Auscultation: + diminished lung sounds; no crackles Cardiovascular: Rate/Rhythm: regular rate and regular rhythm Heart Sounds: + murmur (II/ systolic murmur LSB with radiation to neck) Vessels: + JVD Extremities: + edema (1+ pretibial edema ) Gastrointestinal (Abdomen): normal bowel sounds, soft, nontender, no hepatosplenomegaly Musculoskeletal: no cyanosis or clubbing, extremities motor strength 5/5 Results & Data Vital Signs (Past 12 Hours) Vital Signs Temp Pulse Pulse Pulse Resp BP BP 10/30/22 15:14 36.6 C 63 19 137/72 10/30/22 12:45 10/30/22 11:36 36.7 C 72 18 159/72 H 10/30/22 08:00 10/30/22 08:00 10/30/22 10:24 70 20 144/61 H 10/30/22 08:31 82 22 140/73 10/30/22 07:42 78 24 165/86 H 10/30/22 06:44 10/30/22 06:28 90 10/30/22 06:28 10/30/22 06:28 36.6 C 89 26 H 174/74 H Pulse Ox O2 Del Method O2 Flow Rate 10/30/22 15:14 97 Nasal Cannula 2 10/30/22 12:45 Nasal Cannula 2 10/30/22 11:36 96 Nasal Cannula 2 10/30/22 08:00 97 Nasal Cannula 4 10/30/22 08:00 Nasal Cannula 2 10/30/22 10:24 97 Room Air 10/30/22 08:31 95 Room Air 10/30/22 07:42 98 Room Air 10/30/22 06:44 97 Room Air 10/30/22 06:28 10/30/22 06:28 Oxymask 10/30/22 06:28 97 Oxymask 4 Laboratory Results Cardiac Enzymes 10/30/22 10/30/22 Range/Units 06:37 06:40 AST 14 (13-39) U/L Troponin I High Sens 7.4 (0-20) pg/ml B-Natriuretic Peptide 205 H (0-100) pg/ml Coagulation 10/30/22 10/30/22 Range/Units 06:37 06:40 PT 10.8 (9.0-12.0) Seconds APTT 28.9 (21.0-31.0) Seconds B-Natriuretic Peptide 205 H (0-100) pg/ml CBC 10/30/22 Range/Units 06:37 WBC 11.68 H (4.8-10.8) K/ul RBC 5.01 (4.70-6.10) M/uL Hgb 14.9 (14.0-18.0) g/dl Hct 43.5 (42.0-52.0) % Plt Count 237 (130-400) K/uL Neut # (Auto) 9.28 H (1.40-6.50) K/uL Lymph # (Auto) 1.56 (1.2-3.4) K/uL [place] # (Auto) 0.59 (0.11-0.59) K/uL Eos # (Auto) 0.14 (0-0.50) K/uL Baso # (Auto) 0.07 (0-0.2) K/uL Comprehensive Metabolic Panel 10/30/22 Range/Units 06:37 Sodium 142 (136-145) mmol/L Potassium 4.4 (3.5-5.1) mmol/L Chloride 107 (98-107) mmol/L Carbon Dioxide 24 (21-32) mmol/L BUN 27 H (6-23) mg/dl Creatinine 1.73 H (0.6-1.4) mg/dl Glucose 203 H (70-99(Fasting)) mg/dl Calcium 9.5 (8.6-10.3) mg/dl AST 14 (13-39) U/L ALT 12 (7-52) U/L Alkaline Phosphatase 75 (34-104) U/L Total Protein 7.8 (6.0-8.3) gm/dl Albumin 4.6 (3.4-5.0) gm/dl Intake and Output 10/30/22 10/30/22 10/30/22 06:59 14:59 22:59 Intake Total 350 / 350 Output Total 900 / 900 Balance -550 / -550 Intake: IV 110 / 110 Doxycycline Hyclate 100 mg In 110 / 110 Dextrose 5% 100 ml @ 50 mls/hr IV Q12H [facility] Rx#:[id number] Oral 240 / 240 Output: Urine 900 / 900 Other: Weight 104.7 kg 99.7 kg Weight Measurement Method Built in [facility] Built in [facility] Patient Weight 10/31/22 06:59 Weight 99.7 kg Diagnostic Findings Telemetry reviewed: NSR with rare PVC. NO arrhythmias EKG on arrival: Normal sinus rhythm Normal ECG When compared with ECG of 27-JAN-2018 13:42, No significant change was found Echo report: technically limited study LV wall motion is normal with mild concentric LVH LV is hyperdynamic. EF > 70% Mild MR. Aortic valve is not well visualized. Aortic valve is severely calcified. Moderate to severe is present. Limited visibility Chest X-Ray 10/30/22 06:30 XR chest 1V portable CLINICAL HISTORY: Dyspnea TECHNIQUE: Single frontal radiograph of the chest was obtained. Comparison: Comparison is made to chest radiograph 01/27/2018 FINDINGS: No lines and tubes are seen. The cardiomediastinal silhouette is normal. Faint bibasilar airspace opacities are seen. No evidence of pleural effusion or pneumothorax. IMPRESSION: Faint bibasilar airspace opacities which may represent atelectasis, pneumonia, and/or aspiration. ACT 112: Negative or not required by law. Electronically signed by: Lior Escobar M.D. 10/30/2022 7:27 AM Chest CTA 10/30/22 07:38 CT angio chest PE protocol CLINICAL HISTORY: PE TECHNIQUE: Multidetector row helical CT of the chest was performed with angiographic protocol. Coronal and sagittal reformations were obtained. Coronal and sagittal MIPS were obtained from the axial data set and were submitted for review. Automated dose lowering techniques and/or adjustment according to patient size were utilized for this exam. CT DOSE: 1811.16 mGy.cm Comparison: None available at the time of this dictation. FINDINGS: Lungs and pleura: Bilateral pleural effusions are seen. Atelectasis and groundglass opacities are seen. Bronchial wall thickening is seen. Heart and pericardium: Heart size is normal. No pericardial effusion. Vessels: No evidence of pulmonary embolism. Moderate atherosclerotic disease is seen. Mediastinum and hudson: Enlarged lymph nodes measure up to 14 mm in the subcarinal region. Chest wall and lower neck: Unremarkable. Abdomen: Unremarkable. Bones: Degenerative changes in the thoracic spine. IMPRESSION: 1. Bronchial wall thickening is seen. Mild bilateral pleural effusions are seen. There are scattered groundglass opacities which may represent pneumonia. Likely reactive lymphadenopathy is seen. 2. No evidence of pulmonary embolus. ACT 112: Negative or not required by law. Electronically signed by: Lior Escobar M.D. 10/30/2022 8:25 AM Renal Ultrasound 10/30/22 08:13 RENAL ULTRASOUND HISTORY: Acute or chronic kidney disease. COMPARISON: None. FINDINGS: Right kidney: 10.7 cm. No hydronephrosis. Normal corticomedullary differentiation and cortical thickness. Left kidney: 10.9 cm. No hydronephrosis. Normal corticomedullary differentiation and cortical thickness. Bladder: No bladder wall thickening. The bilateral ureteral jets were not identified. IMPRESSION: Normal renal ultrasound. ACT 112: Negative or not required by law. Electronically signed by: Alberto hCaidez M.D. 10/30/2022 2:32 PM Medications Administered Current Inpatient Medications Acetaminophen (Acetaminophen 325 Mg Tab) 650 mg PO Q4H PRN PRN Reason: Pain or Fever Stop: 11/29/22 08:34 Al Hydrox/Mg Hydrox/Simethicone (Aluminum/Magnesium Susp 30 Ml Udc) 15 ml PO Q4H PRN PRN Reason: Dyspepsia Stop: 11/29/22 08:34 Amlodipine Besylate (Amlodipine Besylate 5 Mg Tab) 5 mg PO BID HEVER Stop: 11/29/22 11:59 Last Admin: 10/30/22 12:23 Dose: 5 mg Aspirin (Aspirin 81 Mg Chew) 81 mg PO QPM HEVER Stop: 11/29/22 20:59 Dextrose (Dextrose 50% 50 Ml Syringe) 25 - 50 ml IV UD PRN; Protocol PRN Reason: Hypoglycemia Protocol Stop: 11/29/22 09:55 Enoxaparin Sodium (Enoxaparin Inj 40 Mg/0.4 Ml Syr) 40 mg SQ QAM HEVER Stop: 11/30/22 08:59 Furosemide (Furosemide Inj 20 Mg/2 Ml Vial) 20 mg IV BIDM HEVER Stop: 11/29/22 19:59 Glucagon (Glucagon For Inj 1 Mg Vial) 1 mg SQ UD PRN; Protocol PRN Reason: Hypoglycemia Protocol Stop: 11/29/22 09:55 Glucose (Glucose 10 Tab/Tube) 4 - 8 tab PO UD PRN; Protocol PRN Reason: Hypoglycemia Treatment Stop: 11/29/22 09:55 Glucose (Glucose 40% Gel 15 Gm Tube) 15 - 30 gm PO UD PRN; Protocol PRN Reason: Hypoglycemia Protocol Stop: 11/29/22 09:55 Guaifenesin (Guaifenesin 600 Mg Tabcr) 1,200 mg PO Q12 HEVER Stop: 11/29/22 20:59 Doxycycline Hyclate 100 mg/ (Dextrose) 110 mls @ 50 mls/hr IV Q12H HEVER Stop: 11/06/22 11:59 Last Infusion: 10/30/22 14:35 Dose: Infused Insulin Aspart (Insulin Aspart Per Unit Charge) 0 units SC ACHS HEVER Stop: 11/29/22 11:29 Last Admin: 10/30/22 12:23 Dose: 5 units Levothyroxine Sodium (Levothyroxine Sodium 50 Mcg Tablet) 50 mcg PO DAILYBB HEVER Stop: 11/29/22 11:59 Last Admin: 10/30/22 12:23 Dose: Not Given Metoprolol Succinate (Metoprolol Succ 50mg Ext Rel Tab) 100 mg PO BID HEVER Stop: 11/29/22 11:59 Last Admin: 10/30/22 12:23 Dose: 100 mg Miscellaneous (Carbohydrates For Hypoglycemia ) 15 - 30 gm PO UD PRN PRN Reason: Hypoglycemia Protocol Stop: 11/29/22 09:55 Ondansetron HCl (Ondansetron Inj 2 Mg/Ml 2 Ml Vial) 4 mg IV Q6H PRN PRN Reason: Nausea Stop: 11/29/22 08:34 Polyethylene Glycol (Polyethylene (Miralax) 17 Gm Pack) 17 gm PO DAILY PRN PRN Reason: Constipation Stop: 11/29/22 08:34 Rosuvastatin Calcium (Rosuvastatin Calcium 20 Mg Tab) 20 mg PO QPM HEVER Stop: 11/29/22 20:59 (3) Pulmonary edema Chronicity: acute Qualified Code(s): J81.0 - Acute pulmonary edema
--- NOTE | 2022-10-30 16:04 | Electrocardiogram Report ---
Test Reason : Blood Pressure : / mmHG Vent. Rate : 087 BPM Atrial Rate : 087 BPM P-R Int : 160 ms QRS Dur : 094 ms QT Int : 384 ms P-R-T Axes : 004 027 054 degrees QTc Int : 462 ms Normal sinus rhythm Normal ECG When compared with ECG of 27-JAN-2018 13:42, No significant change was found Confirmed by Rigo Cabello ([id number]) on 10/30/2022 4:03:23 PM Referred By: REFERRED SELF Confirmed By:Rigo Cabello
[2022-10-30] MEDS ORDERED: POTASSIUM CHLORIDE CRTAB 20 MEQ TABCR PO ONE (16:48)
[2022-10-30] MEDS ORDERED: FUROSEMIDE INJ 20 MG/2 ML VIAL IV SCH (20:00)
[2022-10-30] MEDS: guaiFENesin 600 MG TABCR PO SCH (20:23)
[2022-10-30] MEDS ORDERED: ASPIRIN 81 MG CHEW PO SCH (21:00)
[2022-10-30] MEDS ORDERED: ROSUVASTATIN CALCIUM 20 MG TAB PO SCH (21:00)
[2022-10-31] MEDS: DOXYCYCLINE HYCLATE 100 MG in DEXTROSE 5% 100 ML IV SCH ×2 (01:14→11:39)
[2022-10-31] MEDS: LEVOTHYROXINE SODIUM 50 MCG TABLET PO SCH (05:03)
[2022-10-31 07:00] LABS: Hematocrit (blood only) 38.5 % (42.0-52.0); Hemoglobin 13.2 g/dl (14.0-18.0); Mean Corpuscular Hemoglobin 29.1 pg (25.0-34.0); Mean Corpuscular Hgb Conc 34.3 g/dL (32.0-36.0); Mean Platelet Volume 10.6 fL (9.4-12.4); Platelet Count 196 K/uL (130-400); RDW Coefficient of Variation 13.4 % (11.5-14.5); RDW Standard Deviation 41.9 fL (36.4-46.3); Red Blood Count 4.53 M/uL (4.70-6.10); White Blood Count 8.23 K/ul (4.8-10.8)
[2022-10-31 07:13] LABS: Albumin Globulin Ratio 1.6 (0.9-2); Albumin Level 4.2 gm/dl (3.4-5.0); BUN Creatinine Ratio 19.6 (10-20); Bilirubin,Total 0.8 mg/dl (0.2-1.0); Calcium 9.1 mg/dl (8.6-10.3); Creatinine Clr Calc Pharmacy 44.7 ml/min; Est GFR (African American) 47.4 ml/min; Est GFR (Non-African American) 40.9 ml/min; Globulin 2.7 gm/dl (2.5-4.0); Magnesium 1.6 mg/dl (1.7-2.4); Phosphorus 3.3 mg/dl (2.5-4.9); Potassium 4.1 mmol/L (3.5-5.1); Total Protein 6.9 gm/dl (6.0-8.3)
--- NOTE | 2022-10-31 07:35 | XRay Report ---
XR chest 1V portable HISTORY: Shortness of breath. COMPARISON: Chest 10/30/2022 FINDINGS: The lungs are clear. Cardiac silhouette is normal in size. No pleural effusions. No pneumot horax. IMPRESSION: No acute process. ACT 112: Negative or not required by law. Electronically signed by: Alberto Chaidez M.D. 10/31/2022 7:33 AM
--- NOTE | 2022-10-31 07:53 | Cardiology Progress Note ---
Date of Service October 31, 2022 Assessment & Plan Admission and Anticipated Discharge Date Admission Date: October 30, 2022 Supervising Physician Co-Signing Physician Notes Attending Staff: Pt seen and evaluated with AP Staff. Concur with observations and plans. 72 yo man presenting with dyspnea Dx: Pneumonia + acute on chronic diastolic heart failure Rx with diuretics and antibiotics Plans: * Continue ABX * Pt appeasrs euvolemic and is on RA * STOP Lasix IV * Start Lasix 20 mg po per day * STOP HCTZ (outpt med) * K+ goal 4.5-5 * Mag++ goal >2 * Check BMP within a week as an outpt * Continue Toprol XL 100 mg po BID (SHIPPING ORDER CLERK) * Continue Crestor 20 mg (SHIPPING ORDER CLERK) * LDL - 46 - 2 goal * Continue ASA * Please arrange for patient to be seen @ [facility]/Edwin Ruff * Plans to re-look at aortic valve in the clinic with ECHO. Yan Chávez Subjective Events overnight: * No events overnight * No telemetry events Subjective: * Breathing significantly improved Review of Systems Review of Systems: All systems reviewed & are unremarkable except as noted in HPI & below Physical Exam Physical Exam: JVP 10 cmH20 S1S2 2/6 systolic murmur; A2 is audible CTA B No C/C/E Warm and well perfused Results & Data Vital Signs (Past 12 Hours) Vital Signs Temp Pulse Pulse Resp BP Pulse Ox O2 Del Method 10/31/22 03:00 36.6 C 66 18 173/71 H 97 Room Air 10/30/22 23:00 36.9 C 65 18 115/66 95 Room Air 10/30/22 22:48 64 Laboratory Results Cardiac Enzymes 10/31/22 Range/Units 06:28 AST 12 L (13-39) U/L CBC 10/31/22 Range/Units 06:28 WBC 8.23 (4.8-10.8) K/ul RBC 4.53 L (4.70-6.10) M/uL Hgb 13.2 L (14.0-18.0) g/dl Hct 38.5 L (42.0-52.0) % Plt Count 196 (130-400) K/uL Comprehensive Metabolic Panel 10/31/22 Range/Units 06:28 Sodium 139 (136-145) mmol/L Potassium 4.1 (3.5-5.1) mmol/L Chloride 104 (98-107) mmol/L Carbon Dioxide 29 (21-32) mmol/L BUN 32 H (6-23) mg/dl Creatinine 1.63 H (0.6-1.4) mg/dl Glucose 141 H (70-99(Fasting)) mg/dl Calcium 9.1 (8.6-10.3) mg/dl AST 12 L (13-39) U/L ALT 10 (7-52) U/L Alkaline Phosphatase 67 (34-104) U/L Total Protein 6.9 (6.0-8.3) gm/dl Albumin 4.2 (3.4-5.0) gm/dl Intake and Output 10/30/22 10/31/22 10/31/22 22:59 06:59 14:59 Intake Total 490 / 950 110 / 950 Output Total 1025 / 2825 900 / 2825 200 / 200 Balance -535 / -1875 -790 / -1875 -200 / -200 Intake: IV 110 / 220 Doxycycline Hyclate 100 mg In 110 / 220 Dextrose 5% 100 ml @ 50 mls/hr IV Q12H [facility] Rx#:[id number] Oral 490 / 730 Output: Urine 1025 / 2825 900 / 2825 200 / 200 Other: Weight 98.7 kg Weight Measurement Method Built in [facility] Patient Weight 11/01/22 06:59 Weight 98.7 kg Medications Administered Current Inpatient Medications Acetaminophen (Acetaminophen 325 Mg Tab) 650 mg PO Q4H PRN PRN Reason: Pain or Fever Stop: 11/29/22 08:34 Al Hydrox/Mg Hydrox/Simethicone (Aluminum/Magnesium Susp 30 Ml Udc) 15 ml PO Q4H PRN PRN Reason: Dyspepsia Stop: 11/29/22 08:34 Amlodipine Besylate (Amlodipine Besylate 5 Mg Tab) 5 mg PO BID HEVER Stop: 11/29/22 11:59 Last Admin: 10/31/22 08:00 Dose: 5 mg Aspirin (Aspirin 81 Mg Chew) 81 mg PO QPM HEVER Stop: 11/29/22 20:59 Last Admin: 10/30/22 20:23 Dose: 81 mg Dextrose (Dextrose 50% 50 Ml Syringe) 25 - 50 ml IV UD PRN; Protocol PRN Reason: Hypoglycemia Protocol Stop: 11/29/22 09:55 Enoxaparin Sodium (Enoxaparin Inj 40 Mg/0.4 Ml Syr) 40 mg SQ QAM HEVER Stop: 11/30/22 08:59 Last Admin: 10/31/22 08:00 Dose: 40 mg Glucagon (Glucagon For Inj 1 Mg Vial) 1 mg SQ UD PRN; Protocol PRN Reason: Hypoglycemia Protocol Stop: 11/29/22 09:55 Glucose (Glucose 10 Tab/Tube) 4 - 8 tab PO UD PRN; Protocol PRN Reason: Hypoglycemia Treatment Stop: 11/29/22 09:55 Glucose (Glucose 40% Gel 15 Gm Tube) 15 - 30 gm PO UD PRN; Protocol PRN Reason: Hypoglycemia Protocol Stop: 11/29/22 09:55 Guaifenesin (Guaifenesin 600 Mg Tabcr) 1,200 mg PO Q12 HEVER Stop: 11/29/22 20:59 Last Admin: 10/31/22 08:00 Dose: 1,200 mg Doxycycline Hyclate 100 mg/ (Dextrose) 110 mls @ 50 mls/hr IV Q12H HEVER Stop: 11/06/22 11:59 Last Infusion: 10/31/22 03:56 Dose: Infused Insulin Aspart (Insulin Aspart Per Unit Charge) 0 units SC ACHS HEVER Stop: 11/29/22 11:29 Last Admin: 10/31/22 08:05 Dose: 7 units Levothyroxine Sodium (Levothyroxine Sodium 50 Mcg Tablet) 50 mcg PO DAILYBB HEVER Stop: 11/29/22 11:59 Last Admin: 10/31/22 05:03 Dose: 50 mcg Metoprolol Succinate (Metoprolol Succ 50mg Ext Rel Tab) 100 mg PO BID HEVER Stop: 11/29/22 11:59 Last Admin: 10/31/22 08:00 Dose: 100 mg Miscellaneous (Carbohydrates For Hypoglycemia ) 15 - 30 gm PO UD PRN PRN Reason: Hypoglycemia Protocol Stop: 11/29/22 09:55 Ondansetron HCl (Ondansetron Inj 2 Mg/Ml 2 Ml Vial) 4 mg IV Q6H PRN PRN Reason: Nausea Stop: 11/29/22 08:34 Polyethylene Glycol (Polyethylene (Miralax) 17 Gm Pack) 17 gm PO DAILY PRN PRN Reason: Constipation Stop: 11/29/22 08:34 Rosuvastatin Calcium (Rosuvastatin Calcium 20 Mg Tab) 20 mg PO QPM HEVER Stop: 11/29/22 20:59 Last Admin: 10/30/22 20:24 Dose: 20 mg
[2022-10-31] MEDS: guaiFENesin 600 MG TABCR PO SCH (08:00)
[2022-10-31] MEDS: METOPROLOL SUCC 50MG EXT REL TAB PO SCH (08:00)
[2022-10-31] MEDS: amLODIPine BESYLATE 5 MG TAB PO SCH (08:00)
[2022-10-31] MEDS: INSULIN ASPART PER UNIT CHARGE SC SCH ×2 (08:05→12:04)
[2022-10-31] MEDS ORDERED: ENOXAPARIN INJ 40 MG/0.4 ML SYR SQ SCH (09:00)
[2022-10-31] MEDS ORDERED: FUROSEMIDE 20 MG TAB PO SCH (11:30)
[2022-10-31] MEDS ORDERED: MAGNESIUM OXIDE 400 MG TAB PO SCH (12:15)
--- NOTE | 2022-10-31 12:21 | Discharge Summary ---
Date of Service October 31, 2022 Admission HPI Per Admitting Provider Mr. Solis is a 72 year old male that presents to the [facility] ED via EMS this morning with an acute onset of shortness of breath that started this morning around 0400. He was lying flat and woke from his sleep feeling winded. No associated chest pain. He went to the living room to see if elevation would help and it did not which led to his calling 911. Pt arrived to ED on Bipap which has since been removed after Lasix administration. No other symptoms leading up BNP elevated 205. No known CHF. Mild leukocytosis WBC 11.68 and superimposed KENIA creatinine 1.73; worsening from baseline of 1.4. Last outp atient appointment was 09/25/22 and BP has been well controlled as an outpatient 130/60. Was planning to have an ECHO in the fall; no recent SOB. He is an avid clark and has noticed over the past three weeks that after he is done fishing he does have OSBORNE after climbing the hill back to his car. No usual SOB with daily ambulation to the car, bathroom, around the house, etc. He is retired. CXR: Faint bibasilar airspace opacities which may represent atelectasis, pneumonia, and/or aspiration. Chest CTA: Bronchial wall thickening is seen. Mild bilateral pleural effusions are seen. There are scattered ground-glass opacities which may represent pneumonia. Likely reactive lymphadenopathy is seen. Last ECHO: 11/2021: EF 65-69&, LV wall motion normal with mild concentric LV. AV bicuspid congenital valve, moderate AV stenosis, mild MR, Grade II DDx. Previous ECHO was 2020 prior to that and no significant changes. Follows with Dr. Biggs and Jay Clements as an outpatient. Next ECHO was planned for mid- November. No tobacco, alcohol, or recreational drug use. Pt denies HINSON, visual or auditory disturbances, dizziness, chest pain, palpitations, N/V/D, abdominal pain or tenderness, flank pain, recent falls or trauma. On examination, patient in no apparent distress on 2LNC holding saturations 96- 97%. Appreciate audible heart murmur. trace LE edema; responding well to Lasix. Decreased air movement in lower lung jackson. Suspect patient has PNA and new onset CHF and KENIA. Will treat with IV abx and IV Lasix with ECHO and cardiology consult. Will hold nephrotoxic agents and monitor urine output. Patient will be admitted for further evaluation and management. Please see A/P for further details. Admission Exam Per Admitting Provider Neuro: AAOx4, PERRLA, no aphagia, memory changes, CNII-XII grossly intact HEENT: head normocephalic, moist mucus membranes CV: S1/S2, (-) M/G/R, trace BL Le edema, cap refill < 3 seconds Resp: Lungs decreased in bilateral bases; on 2LNC SpO2 96% GI: Abdomen S/NT/ND, Ax4 bowel sounds, (-) CVA tenderness Musculoskeletal: 5/5 B/L UE strength, 5/5 B/L LE strength. No gait disturbance Skin: (-) rashes , (-) erythema. Psych: euthymic mood Principal Diagnosis Acute respiratory failure likely secondary to acute heart failure with preserved ejection fraction. Likely atypical pneumonia KENIA over CKD Discharge Exam GENERAL: Alert and oriented x3. NAD, on RA HEENT: No pallor, no icterus. Pupils equal, round and reactive to light. Oral mucosa moist. NECK: No JVD, no neck masses. HEART: S1 and S2 heard. Regular rate and rhythm. No murmur, no gallop. RESPIRATORY SYSTEM: Normal AP diameter. No accessory muscle use. No wheezing, no crackles. ABDOMEN: Soft, bowel sounds present, nontender, no distention. CENTRAL NERVOUS SYSTEM: No facial droop. Speech is clear. Obeys simple commands. Moves extremities. EXTREMITIES: no BLE edema, no erythema seen. Discharge Data Allergies Allergy/AdvReac Type Severity Reaction Status Date / Time tetanus and diphtheria Allergy Unknown Unknown Verified 10/30/22 11:35 toxoids lisinopril AdvReac Cough Unverified 10/30/22 08:47 Consultations 10/30/22 08:17 ED Decision to Admit Stat 10/30/22 10:26 Consult Cardiology Routine Ordered Studies 10/30/22 07:38 CT angio chest PE protocol Stat 10/30/22 08:13 US Renal Bladder [US renal/blad retro comp] Routine Hospital Course (1) Acute respiratory failure: (2) KENIA (acute kidney injury): (3) Hypertension: (4) High cholesterol: (5) Diabetes: Plan 72 year old presents with acute onset SOB. SpO2 86%, placed on Bipap; since removed. Received Lasix 40 mg IV in ED. CXR and Chest CTA suggestive of PNA. No PE. Procal and Biofire negative. Recent Gabapentin added to med regimen in September. KENIA Creatinine 1.73; baseline 1.3-1.4. Avoid nephrotoxic agents. Other PMH HTN (On Amlodipine, Losartan, HCTZ and Metoprolol), NIDDM (ON Metformin and Glipizide well controlled), HLD, and Hypothyroidism. At baseline, independent and active clark. No fever, chills. Does not appear toxic. Some OSBORNE noted over past few weeks walking uphill after fishing. Treating for PNA with Doxy and new onset CHF with repeat ECHO, diuretics and Cardiology consultation. He was managed for the following: Likely atypical PNA: Continue with doxycycline to complete the course. Admitting CXR and CTA chest reviewed. Acute Respiratory Failure 2/2 acute HFpEF: Patient found by EMS in respiratory distress, put on BiPAP in route to hospital. In the hospital after Lasix, patient improved, successfully weaned off of oxygen with ongoing Lasix treatment. Cardiology evaluated, hydrochlorothiazide discontinued, Lasix started. Patient to follow-up with cardiology closely upon discharge. Patient to follow low-sodium diet, heart healthy diet. Patient reports feeling better, off of oxygen, is ambulating around without any shortness of breath or chest pain, denies any more orthopnea. Patient is hemodynamically stable and would like to go home. KENIA over CKD: Creatinine 1.73; baseline 1.3-1.4 per outpatient records . Improving with Lasix. Patient to follow-up with PCP to get BMP in a week time. Renal ultrasound reviewed. HTN: Takes Losartan, Metoprolol, HCTZ and Amlodipine; hydrochlorothiazide will be discontinued. Lasix has been added. Last ECHO: 11/2021: EF 65-69&, LV wall motion normal with mild concentric LV. AV bicuspid congenital valve, moderate AV stenosis, mild MR, Grade II DDx. Previous ECHO was 2020 prior to that and no significatn changes HLD: Takes Rosuvastatin; continue Last lipid panel 09/25/22: TG 192, HDL 36, LDL 46 NIDDM2: Takes Metformin and Glipizide; hold both while inpatient Takes Gabapentin; newly added medication on 09/25; will hold for now due to KENIA Place on [facility] Last A1C: 09/25/22: 6.2 Hypothyroidism: Takes Levothyroxine; continue Last TSH 09/25/22: 2.96 Disposition: PCP: Dr. Nayak Code Status: Full Code VTE Prophylaxis: Lovenox SQ Patient being discharged home with following instruction at the point of discharge: Follow-up with your primary care physician within a week time and likely you will need labs CBC/CMP/magnesium/phosphorus. You are diagnosed with acute heart failure, cardiology evaluated you, you are started on Lasix, your outpatient hydrochlorothiazide has been stopped. For concern of atypical pneumonia, continue doxycycline to complete the course. You will need repeat lab test as above. Follow-up with your cardiology in 2 to 4 weeks time. Take your medications as prescribed. Please make sure that you are able to get your medications today by calling your pharmacy before you leave the hospital so that your treatment continuity is not broken. Home Health Attestation I certify that this patient is under my care and that I, or a physicians patient assistant working with me, had a face to-face encounter that meets the home health [id number] encounter requirements with this patient. The encounter with the patient was in whole, or in part, for the following medical condition, which is the primary reason for home health care (list medical condition): I certify that, based on my findings, the following services are medically necessary home health services: My clinical findings support the need for the above services because: Further, I certify that my clinical findings support that this patient is homebound (i.e. absences from home require considerable and taxing effort and are for medical reasons or christian services or infrequently or of short duration when for other reasons) because: Certification for Home Health Services: Based on the above findings, I certify that this patient is confined to the home and needs intermittent assisted care, physical therapy and/or speech therapy or continues to need occupational therapy. The patient is under my care, and I have initiated the establishment of the plan of care. This patient will be followed by a physician who will periodically review the plan of care. Total Time Total Time Spent Total Time Spent (In Minutes): 40 Discharge Plan Discharge Items Patient Disposition: Home - Self-Care Reason For Visit: SOB Discharge Diagnosis: Acute respiratory failure likely secondary to acute heart failure with preserved ejection fraction. Likely atypical pneumonia KENIA over CKD Activity: Resume your previous activity Non-emergency contact: Primary Care Provider Call non-emergency contact if: you have any medication questions, your symptoms worsen and your temperature is above 101 Follow-up/Referrals: Ana Nayak, [Primary Care Provider] - Diet: Heart Healthy and Low Sodium (2gm) Addtl Attending Provider Instructions: Follow-up with your primary care physician within a week time and likely you will need labs CBC/CMP/magnesium/phosphorus. You are diagnosed with acute heart failure, cardiology evaluated you, you are started on Lasix, your outpatient hydrochlorothiazide has been stopped. For concern of atypical pneumonia, continue doxycycline to complete the course. You will need repeat lab test as above. Follow-up with your cardiology in 2 to 4 weeks time. Take your medications as prescribed. Please make sure that you are able to get your medications today by calling your pharmacy before you leave the hospital so that your treatment continuity is not broken. Pending Studies at Discharge: Yes Stand-Alone Forms: [facility] [employer], Smoking Cessation Medications and DC Order Prescriptions: New doxycycline hyclate 100 mg tablet 100 mg PO BID 6 Days Qty: 12 0RF furosemide 20 mg Tablet 20 mg PO QAM Qty: 30 0RF Continued losartan 50 mg tablet 50 mg PO BID metformin 500 mg tablet 500 mg PO BIDWMEAL metoprolol succinate 100 mg tablet extended release 24 hr 100 mg PO BID amlodipine 5 mg tablet 5 mg PO BID glipizide 2.5 mg tablet extended release 24hr 2.5 mg PO QAM levothyroxine 50 mcg tablet 50 mcg PO QAM aspirin 81 mg Tablet,Chewable 81 mg PO QPM gabapentin 100 mg capsule 100 mg PO TID rosuvastatin 20 mg tablet 20 mg PO QPM Discontinued hydrochlorothiazide 12.5 mg capsule 12.5 mg PO BID Discharge Orders: Discharge Order (Routine); Ordered 10/31/22 Ordered By: Camilla Martínez Admission Data Admit Date/Time: 10/30/22 08:35 Attending Provider: Camilla Martínez Admit Provider: Camilla Martínez Primary Care Provider: Ana Nayak Other Providers: Camilla Martínez
== END 2022-10-31 14:02 | disposition home or self-care (01) | DRG 291 ==
LOC: ED 06:21 → 2S 08:35